=== PATIENT | female | born 2005 | race Caucasian/White ===

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

== ENCOUNTER → 2025-01-04 | Outpatient (REF) | payer BC | LOC: M LAB REF 16:55 | PROVIDERS: ATTEND Family Medicine | DX: J06.9 Acute upper respiratory infection, unspecified (principal) ==

== ENCOUNTER 2025-01-15 10:13 | Emergency (ER) | payer BC ==
[~2025-01-15] VITALS: Ht 162.6 cm; Wt 105.7 kg
[2025-01-15] MEDS ORDERED: LORY1TAB2 (10:22)
[2025-01-15] MEDS ORDERED: LEXA5TAB13 (10:22)
[2025-01-15 11:27] LABS: BASO # 0.0 10^3/uL (0.0-0.2); BASO % 0.5 % (0.0-1.0); EOS # 0.1 10^3/uL (0.0-0.5); EOS % 1.8 % (0.0-3.0); LYMPH # 3.1 10^3/uL (1.5-5.0); LYMPH % 40.7 % (24.0-44.0); MONO # 0.4 10^3/uL (0.0-0.8); MONO % 5.4 % (2.0-8.0); NEUTROPHILS # 3.9 10^3/uL (1.5-8.5); NEUTROPHILS % 51.2 % (36.0-66.0); PLATELET COUNT, AUTOMATED 418 10^3/uL (150-450)
[2025-01-15] MEDS ORDERED: ISOVUE-370 76% 100 ML VIAL As Ordered ONE (11:48)
[2025-01-15 11:50] LABS: INR 0.96
[2025-01-15 12:10] LABS: CK-MB VALUE MASS < 1.0 NG/ML (<3.6)
[2025-01-15 12:12] LABS: ALT/SGPT 15 U/L (7.0-40); AST/SGOT 18 U/L (<34)
[2025-01-15 12:41] LABS: CPK CREATINE PHOSPHOKINASE 72 U/L (34-145)
[2025-01-15 12:46] LABS: HCG, SERUM QUALITATIVE NEGATIVE (NEGATIVE)
[2025-01-15 13:21] VITALS: BP 116/69; TEMP 98; O2SAT 97
== END 2025-01-15 13:24 | disposition home or self-care (01) ==
LOC: M ED 10:13
DX: R07.89 Other chest pain (principal); R00.0 Tachycardia, unspecified; Z79.1 Long term (current) use of non-steroidal anti-inflammatories (NSAID); Z79.899 Other long term (current) drug therapy; Z79.810 Long term (current) use of selective estrogen receptor modulators (SERMs)
CPT/HCPCS: 36415; 71275; 80047; 80076; 82550; 82553; 83690; 84443; 84484; 84703; 85025; 85610; 85730; 93005; 93971; 99284; Q9967